=== PATIENT | male | born 1980 | race Caucasian/White ===

== ENCOUNTER → 2018-12-05 12:26 | Outpatient (CLI) | payer OTHER, SELFPAY ==
--- NOTE | 2018-12-05 12:31 | CA_ITS ---
PROCEDURE: 2-D M-mode and color Doppler study INDICATIONS FOR THE TEST: Chest painX COPD Heart Murmur Tobacco Smoking Palpitations Fatigue Syncope Edema HypertensionXDiabetes Mellitus Rheumatic Fever SOBXDOEXObesityXHyperlipidemiaX Family History HD Additional History PP PATIENT INFORMATION HEIGHT: 72 WEIGHT:260 GENDER: Male B/P:124/86 2-D/M-MODE INTERPRETATION: 2-D MEASUREMENTS OBSERVED VALUES IN CMS Right Ventricular Dimension (RVDd) 3.3 Interventricular Septum (Thickness)(IVsd) 1.2 Left Ventricular Internal Dimensions(LVIDd) 5.1 Left Ventricular Posterior Wall (Thickness)(LVPWd) 1.2 Aortic Root 3.6 Aortic Cusp Separation 2.0 Left Atrial Dimensions (LAD) 3.5 2D 1. Left atrium is mildly enlarged, left ventricle is normal size, mild concentric left ventricular hypertrophy, visually estimated ejection fraction 55% with no regional wall motion abnormality. 2. The right atrium and right ventricle are mildly enlarged with normal contractility, there is a pacemaker lead seen right atrium and right ventricle. 3. The aortic valve is minimally thickened and fibrosed. 4. The mitral and tricuspid valve leaflets are minimally thickened. 5. The pulmonic valve is poorly present. 6. No significant pericardial effusion noted. DOPPLER INTERROGATION: Doppler interrogation of the aortic, mitral and tricuspid valvular presence of mild mitral and tricuspid regurgitation, tricuspid regurgitation jet velocity is inadequate for calculation of the right ventricular systolic pressure, diastolic parameters are inconclusive. CONCLUSION: 1. Mildly enlarged left atrium, normal left ventricular size, mild concentric left ventricular hypertrophy, visually estimated ejection fraction 55% with no regional wall motion abnormality, diastolic parameters are inconclusive. 2. Mildly enlarged right ventricle with normal contractility. 3. Mild mitral and tricuspid regurgitation 4. No significant pericardial effusion noted.
== END ==
PROVIDERS: Visit Provider Internal Medicine
DX: R07.89 Other chest pain (principal); R06.09 Other forms of dyspnea; I11.0 Hypertensive heart disease with heart failure; I27.20 Pulmonary hypertension, unspecified; I50.32 Chronic diastolic (congestive) heart failure; E78.49 Other hyperlipidemia; G47.33 Obstructive sleep apnea (adult) (pediatric); Z95.0 Presence of cardiac pacemaker
CPT/HCPCS: 93306

== ENCOUNTER → 2021-06-04 13:44 | Outpatient (CLI) | payer OTHER, SELFPAY ==
--- NOTE | 2021-06-04 13:47 | CA_ITS ---
APPROVED REPORT EXAM: Comprehensive 2D, Doppler, and color-flow Echocardiogram Repair Armature Winder: Raiza Capps CRT Ht: 6 ft 0 in Wt: 287lbs BSA: 2.48 BP: 125/75 mmHg Indications: Chest Pain, Shortness of Breath, Hyperlipidemia, Hypertension/HDD, pacer, gerd 2D Dimensions LVOT 2.10 cm (M/F) 1.5-2.5 LA Volume 29.20 mL LA Volume Index 11.77 mL/m2 (M/F) 16-34 M-Mode Dimensions RVDd 2.49 cm (0.9-2.6) LA Diam 3.92 cm (1.9-4.0) LVDd 5.34 cm (3.5-5.7) Ao Diam 4.73 cm (2.0-3.7) LVDs 3.88 cm (3.5-5.7) IVSd 1.24 cm (0.6-1.1) PWd 0.69 cm (0.6-1.1) EF (Teich) 68.10% FS 38.80% EDV (Teich) 204.10 mL TAPSE 2.12 (<1.7) ESV (Teich) 65.10 mL LV Diastology E Decel Time 137.00 (160-240 msec) E/A Ratio 1.2 MED E' 10.30 (< 7 cm/sec) MED A' 7.60 cm/s E'/MED E' Ratio 8.00 (>14) LAT E' 10.90 (<10 cm/sec) LAT A' 7.00 cm/s E/LAT E' Ratio 7.56 (>14) Aortic Valve AI PHT 419.00 ms AO Peak GR. 4.70 mmHg Mitral Valve MV E Max Yovani. 82.00 (40-130 cm/s) MV A Velocity 68.00 (40-130 cm/s) E/A Ratio 1.21 MV Decel. Time 137.00 (160-240 ms) MV PHT 40.00 ms Pulmonary Valve PV Peak Velocity 106.00 (50-150 cm/s) Tricuspid Valve TR P. Velocity 261.00 cm/s RAP Estimate 10.00 mmHg RVSP 37.20 mmHg Left Ventricle Left atrium is normal size, left ventricle is normal size, there is no concentric left ventricular hypertrophy, visually estimated ejection fraction 55% with no regional wall motion abnormality, diastolic parameters are within normal range in the study. Right Ventricle Right atrium is normal size, right ventricle is mildly enlarged with normal contractility, there is pacemaker leads in the right ventricle. Aortic Valve Aortic valve is grossly normal, there is no aortic stenosis or aortic insufficiency. Mitral Valve Mitral valve grossly normal, there is trace mitral regurgitation. Tricuspid Valve Tricuspid valve grossly normal, there is trace tricuspid regurgitation, tricuspid regurgitation jet velocity is inadequate for calculation of the right ventricular systolic pressure. Pulmonic Valve Pulmonic valve is poorly visualized. Great Vessels Aortic root is normal size. Inferior vena cava is poorly visualized. Pericardium No significant pericardial effusion noted. Conclusion 1. Normal left ventricular size with preserved left ventricular systolic function, visually estimated ejection fraction 55% with no regional wall motion abnormality, diastolic parameters are within normal range in the study. 2. Mildly enlarged right ventricle with normal contractility, there is pacemaker leads in right ventricle. 3. Trace mitral and tricuspid regurgitation. 4. No significant pericardial effusion noted. 5. Inferior vena cava is poorly visualized. Electronically signed by : Graeme Gunter MD 06/05/2021 12:52:40
== END ==
PROVIDERS: PCP Family Medicine; Visit Provider Internal Medicine
DX: I27.20 Pulmonary hypertension, unspecified (principal); I50.30 Unspecified diastolic (congestive) heart failure; I50.9 Heart failure, unspecified
CPT/HCPCS: 93306

== ENCOUNTER 2021-07-24 17:08 | Observation (INO) | payer OTHER, SELFPAY ==
[2021-07-24 17:21] VITALS: BMI 37.7
--- NOTE | 2021-07-24 18:15 | CT_ITS ---
PROCEDURE INFORMATION: Exam: CTA Chest With Contrast Exam date and time: 07/24/2021 6:34 PM Age: 40 years old Clinical indication: Pain; Chest pressure; Prior surgery; Surgery type: Pacemaker; Additional info: R/O pe TECHNIQUE: Imaging protocol: Computed tomographic angiography of the chest with contrast. 3D rendering (Not supervised by radiologist): MIP and/or 3D reconstructed images were created by the technologist. Radiation optimization: All CT scans at this facility use at least one of these dose optimization techniques: automated exposure control; mA and/or kV adjustment per patient size (includes targeted exams where dose is matched to clinical indication); or iterative reconstruction. Contrast material: ISOVUE 370; Contrast volume: 70 ml; Contrast route: INTRAVENOUS (IV); COMPARISON: No relevant prior studies available. FINDINGS: Tubes, catheters and devices: There is a dual lead left subclavian cardiac pacemaker. Pulmonary arteries: Heterogeneous enhancement/attenuation pattern in bilateral lower lobe pulmonary arterial branches, which is probably due to motion and volume averaging artifacts, there is a streaky appearance of the lower pulmonary vessels on coronal series 601, images 56-62. Cannot exclude tiny peripheral clots. No large, central, or segmental pulmonary emboli. Aorta: No thoracic aortic aneurysm. No evidence of dissection in the chest. Lungs: Calcified right middle lobe pulmonary granulomas.No acute findings. There is no pulmonary consolidation. No masses. No significant ground glass disease. Pleural spaces: Unremarkable. No significant pleural effusion. No pneumothorax. Heart: The heart is not enlarged. No significant pericardial effusion. No definite coronary artery calcification is visualized. RV/LV ratio approximately 1, borderline elevated, but there is no significant reflux of contrast into the IVC or hepatic veins to confirm right heart strain. Lymph nodes: No significantly enlarged lymph nodes by short axis criteria. Some small partially fatty, calcified lymph nodes noted in the mediastinum and right hilum. Liver: There is prominent fatty change in the liver. Gallbladder and bile ducts: Biliary tree within normal limits as visualized, post cholecystectomy. Spleen: Mild splenomegaly approximate 13.4 cm. Bones/joints: There are mild spinal degenerative changes, with multilevel disc narrrowing and slight spondylosis. Soft tissues: There are no soft tissue masses or fluid collections. Slight bilateral gynecomastia. IMPRESSION: 1. Motion artifacts. No large, central or segmental pulmonary emboli. Heterogeneous appearance of lower pulmonary arterial branches which could be due to motion artifact versus tiny peripheral emboli. 2. No thoracic aortic aneurysm or evidence of dissection in the chest. 3. Chronic granulomatous changes. No acute pulmonary findings. 4. Fatty liver. Mild splenomegaly. 5. Cardiac pacemaker. No findings of pulmonary vascular congestion. 6. Additional nonemergency and chronic findings as above.
[2021-07-24 20:00] VITALS: PULSE 90
--- NOTE | 2021-07-24 20:22 | HMH.HP ---
*Admission Date: 07/24/21 *Chief complaint: chest pain *History of present illness: this pt presented to [facility] with acute chest pain with rad to lt upper ext - has hx of pacemaker - has hx of htn- pt was transfered to [facility] for eval and treatment - [facility] History I have reviewed the patient's past medical history: Yes Medical History: Reports:: Anxiety, Gastroesophageal Reflux Disease(GERD), Hyperlipidemia, Hypertension, Internal Pacemaker Denies:: Cancer, Diabetes Mellitus Type 1, Diabetes Mellitus Type 2, MRSA *Have you ever received a pneumonia vaccine?: No *Have you received a flu vaccine this season?: No Other Surgeries: Yes: Cardiac Catheterization, Cholecystectomy, Hernia Repair, Pacemaker Amputation: No Fractures: No - *Social History Last grade of school completed: High school graduate Smoking Status: Never smoker Alcohol Intake: never Substance Use Type: denies use *Occupational Status:: employed Housing: apartment Household Members: significant other *Travel in the last 8 weeks: None - Psychiatric History Pschychiatric History:: Reports:: Anxiety Family Hx:: Heart Attack, Diabetes, Hypertension Review of Systems - Review of Systems Review of systems:: pertinent systems reviewed and negative unless documented below - Constitutional Denies fever(s) - Eyes Denies change in vision - ENT Denies sore throat - *Cardiovascular Reports chest pain at rest, Reports radiating jaw, neck or arm pain - *Respiratory Denies cough - *Gastrointestinal Denies abdominal pain - *Musculoskeletal Denies joint pain - Integumentary/Breasts Denies rash - *Neurologic Denies seizure-like activity - Psychiatric Denies anxiety Meds Home Medications Medication Instructions Recorded Confirmed Type aspirin 81 mg tablet,delayed 81 mg PO DAILY tab 08/04/17 07/24/21 History release nitroglycerin 0.4 mg sublingual 0.4 mg SUBLINGUAL Q5-15M PRN 12/05/18 07/24/21 History tablet albuterol sulfate 90 mcg/actuation 1 inh INHALATION QID PRN 08/20/20 07/24/21 History aerosol inhaler buspirone 10 mg tablet 10 mg PO TIDP PRN tab 08/20/20 07/25/21 History gabapentin 300 mg capsule 300 mg PO BID cap 08/20/20 07/24/21 History potassium chloride 10 mEq 10 meq PO TID tab 08/20/20 07/24/21 History tablet,extended release ropinirole 1 mg tablet 1 mg PO QHS PRN tab 08/20/20 07/24/21 History omeprazole 20 mg tablet,delayed 20 mg PO BID tab 11/25/20 07/24/21 History release torsemide 20 mg tablet 20 mg PO BID #90 tab 07/13/21 07/24/21 Rx Atorvastatin Calcium [Lipitor 20mg 20 mg PO HS 07/24/21 07/25/21 History Tab] Isosorbide Mononitrate [Isosorbide 60 mg PO HS 07/24/21 07/24/21 History Mononitrate ER] carvediloL [Carvedilol 12.5mg Tab] 12.5 mg PO BID 07/24/21 07/24/21 History Cariprazine HCl [Vraylar] 4.5 mg PO DAILY 07/25/21 07/25/21 History Allergies Allergy/AdvReac Type Severity Reaction Status Date / Time codeine Allergy Unknown Verified 07/25/21 08:18 allergy reaction oxycodone [From Percocet] Allergy Unknown Verified 07/25/21 08:18 allergy reaction Exam I & O for Last 24 hours: Intake & Output 07/22/21 07/23/21 07/24/21 07/25/21 11:59 11:59 11:59 11:59 Intake Total 240 / 240 Balance 240 / 240 Weight 278 lb - Constitutional no acute distress, obese - *Routine HEENT Exam Head: Present: normocephalic Eye: Present: EOMI, PERRL ENT: Present: mucous membranes dry - *Routine Neck Exam Absent: JVD - *Routine Respiratory Exam Present: CTA bilaterally - *Routine Cardiovascular Exam Present: RRR, murmur - *Routine Abdominal Exam Present: soft - *Routine Rectal Exam Rectal:: deferred - *Routine Genitalia Exam Genitalia:: deferred - *Routine Extremities Exam Absent: calf tenderness - *Routine Skin Exam Present: intact - *Routine Neurological Exam Present: alert, CN II-XII intact - Routine Psychiatric Exam Prese
[2021-07-24 20:30] VITALS: BP 133/77; PULSE 67; RESP 14; TEMP 36.9; O2SAT 95
[2021-07-25] VITALS: PULSE 60
[2021-07-25 00:33] LABS: Troponin I < 0.01 ng/ml (0.00-0.034)
[2021-07-25 03:26] LABS: Troponin I < 0.01 ng/ml (0.00-0.034)
[2021-07-25 04:00] VITALS: PULSE 60
[2021-07-25 04:35] VITALS: BP 132/75; PULSE 60; RESP 16; TEMP 36.9; O2SAT 98
[2021-07-25 04:43] VITALS: BMI 37.4
[2021-07-25 07:47] LABS: Basophils # 0.1 K/mm3 (0-0.2); Basophils % 1.9 % (0.1-2.0); Eosinophils # 0.2 K/mm3 (0.0-0.4); Eosinophils % 2.6 % (0.1-12.0); Hematocrit 51.9 % (42.0-52.0); Hemoglobin 17.9 g/dL (14.1-18.0); Lymphocytes # 2.7 K/mm3 (0.7-4.5); Lymphocytes % 35.7 % (10-50); Mean Corpuscular HGB Conc 34.5 g/dL (31.8-35.4); Mean Corpuscular Hemoglobin 29.6 pg (27.0-31.2); Mean Corpuscular Volume 85.9 fl (80-94); Mean Platelet Volume 9.8 fl (7.4-10.4); Monocytes # 0.5 K/mm3 (0.1-1.0); Monocytes % 6.2 % (1.7-9.3); Neutrophils # 4.1 K/mm3 (1.8-7.8); Neutrophils % 53.6 % (37.0-80.0); Platelet Count 215 K/mm3 (142-424); Red Blood Count 6.04 M/mm3 (4.60-6.20); Red Cell Distribution Width 14.8 % (11.5-17.5); White Blood Count 7.6 K/mm3 (4.8-10.8)
[2021-07-25 08:00] VITALS: BP 120/81; PULSE 60; PULSE 61; RESP 16; TEMP 36.7; O2SAT 95
--- NOTE | 2021-07-25 08:24 | HMH.PHAVTE ---
[facility] VTE Monitoring - Patient Demographics Admission date: 07/25/21 Report Date: 07/25/21 Time: 08:24 Allergies/Adverse Reactions: Patient Allergies codeine Allergy (Verified 07/25/21 08:18) Unknown allergy reaction oxycodone [From Percocet] Allergy (Verified 07/25/21 08:18) Unknown allergy reaction Height: 1.83 m Weight: 125.277 kg Patient Problems: Current Active Problems (Last Updated 01/17/19 @ 14:38 by Rashida Randall RN) Angina at rest (Acute) Obesity (BMI 30-39.9) (Acute) HTN (hypertension) (Acute) Cardiac pacemaker in situ (Chronic) - VTE Risk Labs: VTE Related Lab Results Hgb 17.9 g/dL (14.1-18.0) 07/25/21 06:11 Hct 51.9 % (42.0-52.0) 07/25/21 06:11 Plt Count 215 K/mm3 (142-424) 07/25/21 06:11 VTE Score: 2 - Prophylaxis Types of VTE Prophylaxis: TEDS Knee High Location of Applied Device: Bilateral Lower Extremeties (TOMÁS HOSE ORDERED)
--- NOTE | 2021-07-25 09:08 | HMH.DCSUM ---
General - General Admission date:: 07/24/21 Discharge date: 07/25/21 HPI HPI: this pt presented to [facility] with acute chest pain with rad to lt upper ext - has hx of pacemaker - has hx of htn- pt was transfered to [facility] for eval and treatment - Hospital Course Hospital Course: pt has remained without pain and has stable card enz and discussed with card and will be d/c today and close follow up as op Objective Vital signs: Temp Pulse Resp BP Pulse Ox 98.5 F 60 16 132/75 98 07/25/21 04:35 07/25/21 08:00 07/25/21 04:35 07/25/21 04:35 07/25/21 04:35 no acute distress, obese - *Routine HEENT Exam Head: Present: normocephalic Eye: Present: EOMI, PERRL ENT: Present: mucous membranes dry - *Routine Neck Exam Absent: JVD - *Routine Respiratory Exam Present: CTA bilaterally - *Routine Cardiovascular Exam Present: RRR, murmur - *Routine Abdominal Exam Present: soft - *Routine Extremities Exam Absent: calf tenderness - *Routine Skin Exam Present: intact - *Routine Neurological Exam Present: alert, CN II-XII intact - Routine Psychiatric Exam Present: normal affect Results Labs on day of discharge: Labs from last 24 hours 07/25/21 07/25/21 07/24/21 06:11 02:35 23:35 WBC 7.6 RBC 6.04 Hgb 17.9 Hct 51.9 MCV 85.9 MCH 29.6 MCHC 34.5 RDW 14.8 Plt Count 215 MPV 9.8 Neut % (Auto) 53.6 Lymph % (Auto) 35.7 Maries % (Auto) 6.2 Eos % (Auto) 2.6 Baso % (Auto) 1.9 Neut # (Auto) 4.1 Lymph # (Auto) 2.7 Maries # (Auto) 0.5 Eos # (Auto) 0.2 Baso # (Auto) 0.1 Troponin I < 0.01 < 0.01 DS: Diagnosis - Discharge Diagnosis (1) Angina at rest Status: Acute (2) Cardiac pacemaker in situ Status: Chronic (3) Obesity (BMI 30-39.9) Status: Acute (4) HTN (hypertension) Status: Acute Discharge Plan - Patient Discharge Instructions ACTIVITY: Continue current activity DIET: continue same diet - Follow up Plan Follow up with: Kit Wells MD [Staff Physician] - Disposition: Home, Self-Care Condition at discharge:: Improved Home Medications: Home Medications Medication Instructions Recorded Confirmed Type aspirin 81 mg tablet,delayed 81 mg PO DAILY tab 08/04/17 07/24/21 History release nitroglycerin 0.4 mg sublingual 0.4 mg SUBLINGUAL Q5-15M PRN 12/05/18 07/24/21 History tablet albuterol sulfate 90 mcg/actuation 1 inh INHALATION QID PRN 08/20/20 07/24/21 History aerosol inhaler buspirone 10 mg tablet 10 mg PO TIDP PRN tab 08/20/20 07/25/21 History gabapentin 300 mg capsule 300 mg PO BID cap 08/20/20 07/24/21 History potassium chloride 10 mEq 10 meq PO TID tab 08/20/20 07/24/21 History tablet,extended release ropinirole 1 mg tablet 1 mg PO QHS PRN tab 08/20/20 07/24/21 History omeprazole 20 mg tablet,delayed 20 mg PO BID tab 11/25/20 07/24/21 History release torsemide 20 mg tablet 20 mg PO BID #90 tab 07/13/21 07/24/21 Rx RX: Atorvastatin Calcium [Lipitor 20 mg PO HS 07/24/21 07/25/21 History 20mg Tab] RX: Isosorbide Mononitrate 60 mg PO HS 07/24/21 07/24/21 History [Isosorbide Mononitrate ER] RX: carvediloL [Carvedilol 12.5mg 12.5 mg PO BID 07/24/21 07/24/21 History Tab] Cariprazine HCl [Vraylar] 4.5 mg PO DAILY 07/25/21 07/25/21 History Prescriptions/Medication Reconciliation: Continued nitroglycerin 0.4 mg sublingual tablet 0.4 mg SUBLINGUAL Q5-15M PRN PRN Reason: Chest Pain potassium chloride 10 mEq tablet,extended release 10 meq PO TID tab ropinirole 1 mg tablet 1 mg PO QHS PRN tab PRN Reason: Restless Leg gabapentin 300 mg capsule 300 mg PO BID cap omeprazole 20 mg tablet,delayed release 20 mg PO BID tab torsemide 20 mg tablet 20 mg PO BID #90 tab aspirin 81 mg tablet,delayed release 81 mg PO DAILY tab buspirone 10 mg tablet 10 mg PO TIDP PRN tab PRN Reason: DEPRESSION albut
[2021-07-25 09:23] LABS: Alanine Aminotransferase 71 U/L (12-78); Albumin/Globulin Ratio 1.4 (1.1-1.8); Alkaline Phosphatase 90 U/L (38-126); Anion Gap 8.9 mEq/L (5-15); Aspartate Amino Transferase 39 U/L (17-59); Bilirubin,Total 0.6 mg/dl (0.2-1.3); Blood Urea Nitrogen 15 mg/dl (9-20); Calcium 8.8 mg/dl (8.4-10.2); Carbon Dioxide 31 mmol/L (22.0-30.0); Chloride 105 mmol/L (98-107); Creatinine Clearance Estimated 189 mL/min (50-200); Estimated Glomerular Filt Rate 93 ml/min (>60); GFR (African American) 112 ML/MIN (>60); Globulin 2.9 g/dL (1.3-3.2); Glucose 161 mg/dl (74-100); Potassium 3.9 mmoL/L (3.5-5.1); Sodium 141 mmol/L (136-145); Total Protein,Serum 6.9 g/dl (6.3-8.2)
--- NOTE | 2021-07-27 14:56 | CARE MANAGER ---
CM spoke with patient regarding post discharge status. Patient states that he is doing well, and just saw Dr. Wells today for follow-up appt. Patient has no known needs at this time.
== END 2021-07-25 11:00 | disposition home or self-care (01) ==
PROVIDERS: Admitting Provider Emergency Medicine; PCP Emergency Medicine; Referring Provider Internal Medicine; Visit Provider Emergency Medicine
DX: R07.9 Chest pain, unspecified (principal); I10 Essential (primary) hypertension; Z95.0 Presence of cardiac pacemaker; Z79.899 Other long term (current) drug therapy; E78.5 Hyperlipidemia, unspecified; Z88.5 Allergy status to narcotic agent
CPT/HCPCS: 36415; 71275; 80053; 83036; 83735; 84484; 85025; G0378; Q9967